=== PATIENT | female | born 1940 | race Caucasian/White ===

== ENCOUNTER 2019-07-26 10:01 | Emergency (ER) | payer MEDICARE, OTHER ==
[~2019-07-26] VITALS: Ht 170.2 cm; Wt 77.3 kg
[2019-07-26 10:14] VITALS: BP 105/53; TEMP 97.4
[2019-07-26 11:56] VITALS: PULSE 76
== END 2019-07-26 11:56 | disposition home or self-care (01) ==
LOC: COL.ER 10:01
DX: M25.562 Pain in left knee (principal)

== ENCOUNTER → 2021-08-26 | Outpatient (CLI) | payer MEDICARE, OTHER | LOC: MC.RAD 10:21 | DX: Z12.31 Encounter for screening mammogram for malignant neoplasm of breast (principal) ==

== ENCOUNTER 2022-04-25 07:50 | Emergency (ER) | payer MEDICARE, OTHER ==
[~2022-04-25] VITALS: Ht 172.7 cm; Wt 56.8 kg
[2022-04-25 07:57] VITALS: BP 128/73; TEMP 97.7
[2022-04-25 08:12] LABS: COLLECTION METHOD CLEAN CATCH
[2022-04-25] MEDS ORDERED: CEPHALEXIN500 M1 PO (08:16)
[2022-04-25 08:27] LABS: BUDDING YEAST Present (NOT PRESENT); MUCOUS Present (NOT PRESENT); URINE BACTERIA None Seen /hpf (NONE SEEN); URINE RBC >50 /hpf (0-2)
[2022-04-25 08:37] LABS: URINE APPEARANCE Cloudy (CLEAR/HAZY); URINE BLOOD 2+ (NEGATIVE); URINE COLOR Yellow (YELLOW); URINE GLUCOSE Negative (NEGATIVE); URINE KETONE Negative (NEGATIVE); URINE NITRATE Negative (NEGATIVE); URINE PROTEIN(semi-quant) 1+ (NEGATIVE); URINE UROBILINOGEN 0.2 E.U/dL (0.2-1.0)
[2022-04-25 09:00] VITALS: PULSE 72
== END 2022-04-25 09:00 | disposition home or self-care (01) ==
LOC: COL.ER 07:50
PROVIDERS: Emergency Medicine
DX: N39.0 Urinary tract infection, site not specified (principal)

== ENCOUNTER → 2022-11-05 | Outpatient (CLI) | payer MEDICARE, OTHER ==
[~2022-11-05] MED LIST: CEPHALEXIN500 M1 PO
== END ==
LOC: MC.RAD 09:04
DX: Z12.31 Encounter for screening mammogram for malignant neoplasm of breast (principal)

== ENCOUNTER → 2023-09-07 | Outpatient (CLI) | payer MEDICARE, OTHER ==
[~2023-09-07] MED LIST changes: +Iohexol 300 - 100 ML VIAL IV ONE; +NS 100 ML IV SCH
== END ==
LOC: COL.RAD 10:17
DX: N20.2 Calculus of kidney with calculus of ureter (principal); K80.20 Calculus of gallbladder without cholecystitis without obstruction
CPT/HCPCS: Q9967

== ENCOUNTER 2023-09-14 02:01 | Emergency (ER) | payer MEDICARE, OTHER ==
[~2023-09-14] VITALS: Ht 172.7 cm; Wt 77.3 kg
[~2023-09-14 02:01] MED LIST changes: -Iohexol 300 - 100 ML VIAL IV ONE; -NS 100 ML IV SCH
[2023-09-14 02:08] VITALS: TEMP 97.7
[2023-09-14 02:33] LABS: COLLECTION METHOD CLEAN CATCH
[2023-09-14 02:47] LABS: URINE APPEARANCE Clear (CLEAR/HAZY); URINE COLOR OTHER (YELLOW); URINE PROTEIN(semi-quant) Negative (NEGATIVE)
[2023-09-14 02:48] LABS: URINE BACTERIA Occasional /hpf (NONE SEEN); URINE BLOOD TRACE-INTACT (NEGATIVE); URINE RBC 0-2 /hpf (0-2); URINE UROBILINOGEN 0.2 E.U/dL (0.2-1.0)
[2023-09-14] MEDS ORDERED: cefTRIAXone 1 G,Lidocaine PF 1% 2.1 ML IM ONE (03:15)
[2023-09-14 03:45] VITALS: BP 118/63; PULSE 87
== END 2023-09-14 03:50 | disposition home or self-care (01) ==
LOC: COL.ER 02:01
PROVIDERS: Emergency Medicine
DX: N39.0 Urinary tract infection, site not specified (principal)
CPT/HCPCS: J0696

== ENCOUNTER → 2024-01-10 | Outpatient (CLI) | payer MEDICARE | LOC: MC.RAD 13:35 | DX: Z12.31 Encounter for screening mammogram for malignant neoplasm of breast (principal) ==